=== PATIENT | female | born 1980 | race American Indian/Alaskan Native ===

== ENCOUNTER 2021-02-19 11:07 | Outpatient (CLI) | payer OTHER ==
[2021-02-19 11:50] LABS: Basophils # (Auto) 0.1 K/mm3 (0.0-0.1); Basophils % (Auto) 1.5 % (0.0-1.8); Eosinophils # (Auto) 0.4 K/mm3 (0.0-0.4); Eosinophils % (Auto) 5.5 % (0.0-4.3); Lymphocytes # (Auto) 3.2 K/mm3 (1.2-5.4); Lymphocytes % (Auto) 39.3 % (13.4-35.0); Mean Corpuscular HGB Conc 29 % (30-34); Mean Corpuscular Volume 72 fl (79-97); Monocytes # (Auto) 0.6 K/mm3 (0.0-0.8); Monocytes % (Auto) 7.9 % (0.0-7.3); Platelet Count 575 K/mm3 (140-440); Red Blood Count 3.78 M/mm3 (3.65-5.03); Red Cell Distribution Width 18.9 % (13.2-15.2)
[2021-02-19 12:14] LABS: Alanine Aminotransferase 9 units/L (7-56); Albumin 4.6 g/dL (3.9-5); Blood Urea Nitrogen 11 mg/dL (7-17); Calcium 10.7 mg/dL (8.4-10.2); HDL Cholesterol 46 mg/dL (40-59); Hemolysis Index 2; LDL Cholesterol,Direct 92 mg/dL (50-130)
[2021-02-19 12:27] LABS: BUN/Creatinine Ratio 28
[2021-02-19 12:31] LABS: Bilirubin,Urine NEG (Negative); Blood,Urine NEG (Negative); Color,Urine Yellow (Yellow); Mucus,Urine 3+ /HPF
[2021-02-19 12:37] LABS: Hematocrit 27.4 % (30.3-42.9)
== END 2021-02-19 11:08 | disposition home or self-care (01) ==
LOC: LAB 11:07
PROVIDERS: ATTEND Internal Medicine
DX: Z13.220 Encounter for screening for lipoid disorders (principal); Z00.00 Encounter for general adult medical examination without abnormal findings; E11.65 Type 2 diabetes mellitus with hyperglycemia; Z13.29 Encounter for screening for other suspected endocrine disorder; R53.82 Chronic fatigue, unspecified; E55.9 Vitamin D deficiency, unspecified
CPT/HCPCS: 36415; 80053; 80061; 81001; 82306; 82607; 83036; 84443; 85025; 86689

== ENCOUNTER 2021-02-25 10:17 | Outpatient (CLI) | payer OTHER ==
--- NOTE | 2021-02-25 12:01 | Mammography Report ---
DIGITAL SCREENING MAMMOGRAM WITH CAD, 02/25/2021 CLINICAL INFORMATION / INDICATION: Routine screening mammography. SCREENING MAMMOGRAM TECHNIQUE: Digital bilateral 2D mammography was obtained in the craniocaudal and mediolateral obliqu e projections. This examination was interpreted with the benefit of Computer-Aided Detection analysis . COMPARISON: Baseline FINDINGS: Breast Density: There are scattered areas of fibroglandular density. No dominant mass, suspicious calcifications, or architectural distortion in the left breast. On the cc view only the posterior depth near the chest wall there is very 1 cm nodule IMPRESSION: 1 cm nodule in the posterior right breast adjacent to the chest wall requires further deneen luation Follow up recommendation: Ultrasound BI-RADS Category 0: Incomplete. Needs additional imaging evaluation and/or prior mammograms for abbe rison. A "normal" or negative report should not discourage follow up or biopsy of a clinically significant f inding. A written summary of these findings will be mailed to the patient. The patient will be entered into a mammography reporting system which will generate a reminder letter for the patient's next appointmen t at the appropriate interval. The [employer] recommends yearly mammograms starting at age 40 and continuing as l sarabjit as a woman is in good health. Breast MRI is recommended for women with an approximate 20-25% or greater lifetime risk of breast cancer, including women with a strong family history of breast or ova max cancer or who have been treated for Hodgkin's disease. Signer Name: Dennis Wang MD Signed: 02/25/2021 11:57 AM Workstation Name: [email or web address]
== END 2021-02-25 10:18 | disposition home or self-care (01) ==
LOC: MAMMO 10:17
PROVIDERS: ATTEND Internal Medicine
DX: Z12.31 Encounter for screening mammogram for malignant neoplasm of breast (principal); N64.89 Other specified disorders of breast
CPT/HCPCS: 77067

== ENCOUNTER 2021-03-05 10:29 | Outpatient (CLI) | payer OTHER ==
--- NOTE | 2021-03-05 12:45 | Ultrasound Report ---
RIGHT DIGITAL DIAGNOSTIC MAMMOGRAM WITH CAD , 03/05/2021 RIGHT LIMITED BREAST ULTRASOUND CLINICAL INFORMATION / INDICATION: Abnormal baseline right mammogram TECHNIQUE: Digital right mammographic imaging was performed. Spot compression views were obtained. [facility] [place] [facility] was performed. This examination was interpreted with the benefit of Computer-Aided D etection (CAD) analysis. COMPARISON: Recent mammogram 02/25/2021 FINDINGS: Breast Density: There are scattered areas of fibroglandular density. MAMMOGRAPHIC FINDINGS: Spot compression views confirm the presence of a well-circumscribed round nodu le in the posterior central right breast, projecting slightly over the pectoralis muscle. This nodule measures 9 mm. Despite multiple attempts to find this nodule in the MLO or true lateral view, this n odule could not be identified and therefore exact location within the breast is unclear. I suspect th e nodule, given its overall benign characteristics, is a benign intramammary lymph node. ULTRASOUND FINDINGS: Targeted ultrasound evaluation was performed of the area of interest. Sonograp hic evaluation of the right breast does not demonstrate a sonographic correlate for the 9 mm mass/nod ule in the posterior right breast, as noted mammographically. A small cyst was seen in the 3:00 posit ion, 5 cm from nipple, incidentally noted. No solid mass or shadowing identified. IMPRESSION: Probably benign 9 mm nodule in the deep right breast, seen only on cc view. I suspect thi s is a benign intramammary lymph node. Since this was the patient's baseline mammogram, a follow-up r ight mammogram in 6 months is recommended. Follow up recommendation: Short term follow up in 6 months. BI-RADS Category 3: Probably Benign. Followup in 6 months. A "normal" or negative report should not discourage follow up or biopsy of a clinically significant f inding. A written summary of these findings will be mailed to the patient. The patient will be entered into a mammography reporting system which will generate a reminder letter for the patient's next appointmen t at the appropriate interval. According to the [employer], yearly mammograms are recommended starting at age 40 and continuing as long as a woman is in good health. Breast MRI is recommended for women with an amando roximately 20-25% or greater lifetime risk of breast cancer, including women with a strong family his tory of breast or ovarian cancer and women who have been treated for Hodgkin's disease. Signer Name: Fariba Downing MD Signed: 03/05/2021 12:41 PM Workstation Name: [email or web address]
== END 2021-03-05 10:30 | disposition home or self-care (01) ==
LOC: US 10:29
PROVIDERS: ATTEND Internal Medicine
DX: R92.8 Other abnormal and inconclusive findings on diagnostic imaging of breast (principal)

== ENCOUNTER 2021-07-04 09:38 | Outpatient (CLI) | payer OTHER ==
--- NOTE | 2021-07-04 10:20 | XRay Report ---
CHEST 2 VIEWS INDICATION / CLINICAL INFORMATION: WEIGHT LOSS. COMPARISON: None available. FINDINGS: SUPPORT DEVICES: None. HEART / MEDIASTINUM: No significant abnormality. LUNGS / PLEURA: No significant pulmonary or pleural abnormality. No pneumothorax. ADDITIONAL FINDINGS: No significant additional findings. IMPRESSION: 1. No acute findings. Signer Name: Sergo Samuel MD Signed: 07/04/2021 10:15 AM Workstation Name: [id number]
--- NOTE | 2021-07-04 12:35 | Ultrasound Report ---
ULTRASOUND ABDOMEN, LIMITED INDICATION / CLINICAL INFORMATION: WEIGHT LOSS. Abdominal pain COMPARISON: None available. FINDINGS: PANCREAS: Visualized portion shows no significant abnormality. AORTA: The proximal aorta shows no significant abnormality. IVC: No significant abnormality. LIVER: The liver is mildly enlarged measuring 16.7 cm with diffusely echogenic appearance. Normal hep atopedal blood flow within the main portal vein. GALLBLADDER: No significant abnormality. BILE DUCTS: No significant abnormality. Common bile duct measures 5 mm. RIGHT KIDNEY: The right kidney measures 12.2 cm. No significant abnormality. FREE FLUID: None. ADDITIONAL FINDINGS: None. IMPRESSION: 1. Mild hepatomegaly with diffusely echogenic appearance of the liver, most commonly seen with steato sis. No focal hepatic lesion identified. Scribed by: Karen Nguyen RDMS, RVT Scribed: 07/04/2021 10:00 AM I have reviewed the images, agree with this report, and edited this report as needed. Signer Name: Abraham Oliva MD Signed: 07/04/2021 12:31 PM Workstation Name: [id number]
== END 2021-07-04 09:39 | disposition home or self-care (01) ==
LOC: US 09:38
PROVIDERS: ATTEND Internal Medicine Gastroenterology
DX: K76.0 Fatty (change of) liver, not elsewhere classified (principal); R16.0 Hepatomegaly, not elsewhere classified; R63.4 Abnormal weight loss
CPT/HCPCS: 71046; 76705